=== PATIENT | male | born 1940 | race Caucasian/White ===

== ENCOUNTER 2020-05-16 09:53 | Inpatient (IN) ==
[2020-05-16] MEDS ORDERED: Isovue-370 500 ML BOTTLE IVP ONE (10:06)
[2020-05-16 10:22] LABS: Basophils % 0.1 %; Hematocrit 43.2 % (37.5-50.1); Hemoglobin 14.1 g/dL (12.9-16.9); Immature Granulocytes % 0.3 % (0-4); Lymphocytes # 0.3 K/mcL (0.6-4.6); Lymphocytes % 2.7 %; Mean Corpuscular HGB Conc 32.6 g/dL (31.6-35.5); Mean Corpuscular Hemoglobin 29.2 pg (28.0-33.3); Mean Corpuscular Volume 89.4 fL (83.0-100.0); Mean Platelet Volume 10.3 fL (9.4-12.4); Monocytes # 0.4 K/mcL (0.0-1.3); Monocytes % 3.9 %; Neutrophils # 8.8 K/mcL (1.6-8.9); Platelet Count 167 K/mcL (140-400); Red Blood Count 4.83 M/mcL (4.19-5.50); Red Cell Distribution Width 13.1 % (11.5-14.5); White Blood Count 9.4 K/mcL (4.3-11.1)
[2020-05-16 10:42] LABS: Alanine Aminotransferase 20 Units/L (7-52); Albumin/Globulin Ratio 1.2 (1.1-2.2); Alkaline Phosphatase 37 Units/L (34-104); Aspartate Amino Transferase 29 Units/L (13-39); BUN/Creatinine Ratio 22 (6-26); Bilirubin,Direct 0.4 mg/dL (0.0-0.2); Bilirubin,Indirect 0.9 mg/dL (0.0-1.0); Bilirubin,Total 1.3 mg/dL (0.3-1.0); Blood Urea Nitrogen 25 mg/dL (8-23); Calcium 9.2 mg/dL (8.6-10.3); Carbon Dioxide 23 mEq/L (23-29); Chloride 99 mEq/L (98-107); Globulin 3.4 g/dL (2.4-3.5); Glucose 149 mg/dL (70-105); Osmolality,Calculated 283 (280-300); Potassium 3.8 mEq/L (3.5-5.1); Sodium 133 mEq/L (136-145); Total Protein 7.4 g/dL (6.4-8.9); Troponin I < 0.03 ng/mL (< 0.04); eGFR For African Americans > 60 (> 60); eGFR For Non-African Americans > 60 (> 60)
[2020-05-16 11:47] LABS: Bacteria,Urine Few per hpf (None-Few); Bilirubin,Urine Negative (Negative); Blood,Urine Trace (Negative); Clarity,Urine Turbid (Clear); Color,Urine Yellow (Yellow); Glucose,Urine (UA) Normal (Normal); Hyaline Casts,Urine Few per lpf (None Seen); Ketones,Urine 40 mg/dL (Negative); Leukocyte Esterase,Urine Negative (Negative); Mucus,Urine Many per lpf (None-Few); Nitrite,Urine Negative (Negative); PH,Urine 5.5 pH Units (5.0-8.0); Protein,Urine 50 mg/dL (Neg-Trace); RBC,Urine 0-3 per hpf (0-3); Specific Gravity,Urine 1.029 (1.010-1.025); WBC,Urine 0-3 per hpf (0-3)
[2020-05-16] MEDS ORDERED: Naloxone 0.4 MG/ML INJ IVP PRN (14:09)
[2020-05-16] MEDS: Ipratropium 1 PUFF INHALER IH SCH ×2 (16:29→19:58)
[2020-05-16] MEDS ORDERED: *HR* Dextrose 50 % in Water (Vial) 50 ML VIAL IVP PRN (17:24)
[2020-05-16] MEDS ORDERED: Dextrose Gel 15 GM/37.5 ML TUBE PO PRN ×2 (17:24)
[2020-05-16] MEDS ORDERED: D5% in Water 1,000 ML IVC PRN (17:24)
[2020-05-16] MEDS: Insulin LISPRO 300 UNITS/3 ML VIAL SQ SCH ×2 (17:47→21:56)
[2020-05-16] MEDS: Azithromycin 500 MG in 0.9 % Sodium Chloride 250 ML IVPB SCH (17:47)
[2020-05-17] MEDS: Ipratropium 1 PUFF INHALER IH SCH ×7 (00:01→23:53)
[2020-05-17] MEDS: Insulin LISPRO 300 UNITS/3 ML VIAL SQ SCH ×4 (08:19→20:53)
[2020-05-17 08:35] LABS: Basophils % 0.1 %; Hematocrit 42.1 % (37.5-50.1); Hemoglobin 13.7 g/dL (12.9-16.9); Immature Granulocytes % 0.4 % (0-4); Lymphocytes # 0.4 K/mcL (0.6-4.6); Lymphocytes % 3.6 %; Mean Corpuscular HGB Conc 32.5 g/dL (31.6-35.5); Mean Corpuscular Hemoglobin 29.5 pg (28.0-33.3); Mean Corpuscular Volume 90.7 fL (83.0-100.0); Mean Platelet Volume 10.3 fL (9.4-12.4); Monocytes # 0.5 K/mcL (0.0-1.3); Monocytes % 5.6 %; Neutrophils # 8.7 K/mcL (1.6-8.9); Platelet Count 175 K/mcL (140-400); Red Blood Count 4.64 M/mcL (4.19-5.50); Red Cell Distribution Width 13.2 % (11.5-14.5); Segmented Neutrophils % 90.3 %; White Blood Count 9.7 K/mcL (4.3-11.1)
[2020-05-17 08:53] LABS: BUN/Creatinine Ratio 28 (6-26); Blood Urea Nitrogen 31 mg/dL (8-23); Calcium 9.1 mg/dL (8.6-10.3); Carbon Dioxide 26 mEq/L (23-29); Chloride 102 mEq/L (98-107); Glucose 129 mg/dL (70-105); Osmolality,Calculated 292 (280-300); Potassium 4.5 mEq/L (3.5-5.1); Sodium 137 mEq/L (136-145); eGFR For African Americans > 60 (> 60); eGFR For Non-African Americans > 60 (> 60)
[2020-05-17] MEDS ORDERED: predniSONE 20 MG TABLET PO SCH (09:00)
[2020-05-17] MEDS ORDERED: cefTRIAXone 1,000 MG in Water for inj. (sterile) 10 ML IVP SCH (09:00)
[2020-05-17] MEDS: *HR* Enoxaparin 40 MG/0.4 ML SYRINGE SQ SCH (10:56)
[2020-05-17 11:53] LABS: Enterococcus by PCR Not Detected (Not Detect); Staphylococcus aureus by PCR Not Detected (Not Detect); Staphylococcus by PCR Not Detected (Not Detect); Streptococcus agalactiae(B)PCR Not Detected (Not Detect); Streptococcus by PCR DETECTED (Not Detect); Streptococcus pneumoniae PCR Not Detected (Not Detect); Streptococcus pyogenes (A) PCR Not Detected (Not Detect); blaKPC Carbapenem-Resist Gene Not Detected (Not Detect); mecA Methicillin-Resist Gene Not Detected (Not Detect); vanA/B Vancomycin-Resist Genes Not Detected (Not Detect)
[2020-05-17 11:54] LABS: Acinetobacter baumannii by PCR Not Detected (Not Detect); Candida albicans by PCR Not Detected (Not Detect); Candida glabrata by PCR Not Detected (Not Detect); Candida krusei by PCR Not Detected (Not Detect); Candida parapsilosis by PCR Not Detected (Not Detect); Candida tropicalis by PCR Not Detected (Not Detect); Enterobacter cloacae Cmplx PCR Not Detected (Not Detect); Enterobacteriaceae by PCR Not Detected (Not Detect); Escherichia coli by PCR Not Detected (Not Detect); Klebsiella oxytoca by PCR Not Detected (Not Detect); Klebsiella pneumoniae by PCR Not Detected (Not Detect); Proteus by PCR Not Detected (Not Detect); Pseudomonas aeruginosa by PCR Not Detected (Not Detect); Serratia marcescens by PCR Not Detected (Not Detect)
[2020-05-17] MEDS: Budesonide/Formoterol 160/4.5 1 PUFF INH IH SCH ×2 (12:30→19:52)
[2020-05-17] MEDS ORDERED: CefTRIAXone 1,000 MG VIAL IVP ONE (13:21)
[2020-05-17] MEDS ORDERED: cefTRIAXone 1,000 MG in Water for inj. (sterile) 10 ML IVP ONE (13:27)
[2020-05-17] MEDS: Azithromycin 500 MG in 0.9 % Sodium Chloride 250 ML IVPB SCH (14:30)
[2020-05-17] MEDS: methylPREDNISolone 125 MG/2 ML VIAL IVP SCH (17:22)
[2020-05-17] MEDS: Sennosides/Docusate Sodium TABLET PO SCH (20:52)
[2020-05-18] MEDS: methylPREDNISolone 125 MG/2 ML VIAL IVP SCH ×4 (01:11→23:36)
[2020-05-18] MEDS: Ipratropium 1 PUFF INHALER IH SCH ×5 (03:42→20:26)
[2020-05-18 05:04] LABS: Basophils % 0.1 %; Hematocrit 40.1 % (37.5-50.1); Hemoglobin 12.9 g/dL (12.9-16.9); Immature Granulocytes % 0.4 % (0-4); Lymphocytes # 0.4 K/mcL (0.6-4.6); Lymphocytes % 4.7 %; Mean Corpuscular HGB Conc 32.2 g/dL (31.6-35.5); Mean Corpuscular Hemoglobin 28.9 pg (28.0-33.3); Mean Corpuscular Volume 89.7 fL (83.0-100.0); Mean Platelet Volume 10.5 fL (9.4-12.4); Monocytes # 0.2 K/mcL (0.0-1.3); Monocytes % 3.1 %; Neutrophils # 6.8 K/mcL (1.6-8.9); Platelet Count 189 K/mcL (140-400); Red Blood Count 4.47 M/mcL (4.19-5.50); Red Cell Distribution Width 13.2 % (11.5-14.5); Segmented Neutrophils % 91.7 %; White Blood Count 7.4 K/mcL (4.3-11.1)
[2020-05-18 05:20] LABS: BUN/Creatinine Ratio 34 (6-26); Blood Urea Nitrogen 35 mg/dL (8-23); Calcium 8.9 mg/dL (8.6-10.3); Carbon Dioxide 22 mEq/L (23-29); Chloride 103 mEq/L (98-107); Glucose 209 mg/dL (70-105); Osmolality,Calculated 294 (280-300); Potassium 4.5 mEq/L (3.5-5.1); Sodium 135 mEq/L (136-145); eGFR For African Americans > 60 (> 60); eGFR For Non-African Americans > 60 (> 60)
[2020-05-18] MEDS: *HR* Enoxaparin 40 MG/0.4 ML SYRINGE SQ SCH (06:31)
[2020-05-18] MEDS: Insulin LISPRO 300 UNITS/3 ML VIAL SQ SCH ×4 (07:59→20:49)
[2020-05-18] MEDS: Aspirin Enteric Coated 81 MG Tablet PO SCH (08:00)
[2020-05-18] MEDS: Sennosides/Docusate Sodium TABLET PO SCH ×2 (08:00→20:49)
[2020-05-18] MEDS: Cyanocobalamin (B-12) 1,000 MCG TABLET PO SCH (08:00)
[2020-05-18] MEDS: cefTRIAXone 2,000 MG in Water for inj. (sterile) 20 ML IVP SCH (08:01)
[2020-05-18] MEDS: Budesonide/Formoterol 160/4.5 1 PUFF INH IH SCH ×2 (08:05→20:26)
[2020-05-18] MEDS ORDERED: Furosemide 20 MG/2 ML VIAL IVP ONE (10:00)
[2020-05-18] MEDS: Fluticasone Propionate Nasal 50 MCG/SPRAY BOTTLE NS PRN (12:24)
[2020-05-18] MEDS: Insulin DETEMIR 100 UNIT/ML X5UNITS SQ SCH (13:39)
[2020-05-18] MEDS: Azithromycin 500 MG in 0.9 % Sodium Chloride 250 ML IVPB SCH (15:58)
[2020-05-18 22:31] LABS: Adenovirus Not Detected (Not Detect); Coronavirus 229E Not Detected (Not Detect); Coronavirus HKU1 Not Detected (Not Detect); Coronavirus NL63 Not Detected (Not Detect); Coronavirus OC43 Not Detected (Not Detect)
[2020-05-18 22:32] LABS: Bordetella Pertussis Not Detected (Not Detect); Chlamydophila pneumoniae Not Detected (Not Detect); Human Metapneumovirus Not Detected (Not Detect); Human Rhinovirus/Enterovirus Not Detected (Not Detect); Influenza A Subtype 2009 H1 Not Detected (Not Detect); Influenza B Not Detected (Not Detect); Mycoplasma pneumoniae Not Detected (Not Detect); Parainfluenza Virus 1 Not Detected (Not Detect); Parainfluenza Virus 2 Not Detected (Not Detect); Parainfluenza Virus 3 Not Detected (Not Detect); Parainfluenza Virus 4 Not Detected (Not Detect); Respiratory Syncytial Virus Not Detected (Not Detect); SARS-CoV-2 DETECTED (Not Detect)
[2020-05-19] MEDS: Ipratropium 1 PUFF INHALER IH SCH ×6 (00:27→20:30)
[2020-05-19] MEDS: *HR* Enoxaparin 40 MG/0.4 ML SYRINGE SQ SCH (05:45)
[2020-05-19 06:03] LABS: Basophils % 0.1 %; Hemoglobin 12.6 g/dL (12.9-16.9); Lymphocytes # 0.3 K/mcL (0.6-4.6); Lymphocytes % 3.3 %; Mean Corpuscular HGB Conc 32.3 g/dL (31.6-35.5); Mean Corpuscular Hemoglobin 29.2 pg (28.0-33.3); Mean Corpuscular Volume 90.5 fL (83.0-100.0); Mean Platelet Volume 10.5 fL (9.4-12.4); Monocytes # 0.4 K/mcL (0.0-1.3); Monocytes % 4.2 %; Neutrophils # 8.6 K/mcL (1.6-8.9); Platelet Count 197 K/mcL (140-400); Red Blood Count 4.31 M/mcL (4.19-5.50); Red Cell Distribution Width 13.4 % (11.5-14.5); Segmented Neutrophils % 91.4 %; White Blood Count 9.4 K/mcL (4.3-11.1)
[2020-05-19 06:12] LABS: BUN/Creatinine Ratio 39 (6-26); Blood Urea Nitrogen 45 mg/dL (8-23); Calcium 8.8 mg/dL (8.6-10.3); Carbon Dioxide 26 mEq/L (23-29); Chloride 104 mEq/L (98-107); Glucose 198 mg/dL (70-105); Osmolality,Calculated 303 (280-300); Potassium 4.3 mEq/L (3.5-5.1); Sodium 138 mEq/L (136-145); eGFR For African Americans > 60 (> 60); eGFR For Non-African Americans > 60 (> 60)
[2020-05-19] MEDS: cefTRIAXone 2,000 MG in Water for inj. (sterile) 20 ML IVP SCH (07:28)
[2020-05-19] MEDS: Aspirin Enteric Coated 81 MG Tablet PO SCH (07:29)
[2020-05-19] MEDS: methylPREDNISolone 125 MG/2 ML VIAL IVP SCH ×3 (07:29→23:31)
[2020-05-19] MEDS: Sennosides/Docusate Sodium TABLET PO SCH ×3 (07:30→19:58)
[2020-05-19] MEDS: Cyanocobalamin (B-12) 1,000 MCG TABLET PO SCH (07:30)
[2020-05-19] MEDS: Insulin DETEMIR 100 UNIT/ML X5UNITS SQ SCH (07:34)
[2020-05-19] MEDS: Insulin LISPRO 300 UNITS/3 ML VIAL SQ SCH ×4 (07:35→21:16)
[2020-05-19] MEDS: Budesonide/Formoterol 160/4.5 1 PUFF INH IH SCH ×2 (07:43→20:30)
[2020-05-19 07:49] LABS: Estimated Average Glucose 151 mg/dl
[2020-05-19] MEDS: *HR* LORazepam 2 MG/ML VIAL IVP PRN (11:31)
[2020-05-19] MEDS: Azithromycin 500 MG in 0.9 % Sodium Chloride 250 ML IVPB SCH (15:50)
[2020-05-20] MEDS: Ipratropium 1 PUFF INHALER IH SCH ×7 (00:01→23:52)
[2020-05-20 05:20] LABS: Basophils % 0.3 %; Hematocrit 37.9 % (37.5-50.1); Hemoglobin 12.6 g/dL (12.9-16.9); Immature Granulocytes % 1.2 % (0-4); Lymphocytes # 0.3 K/mcL (0.6-4.6); Lymphocytes % 2.8 %; Mean Corpuscular HGB Conc 33.2 g/dL (31.6-35.5); Mean Corpuscular Hemoglobin 30.3 pg (28.0-33.3); Mean Corpuscular Volume 91.1 fL (83.0-100.0); Mean Platelet Volume 10.3 fL (9.4-12.4); Monocytes # 0.5 K/mcL (0.0-1.3); Monocytes % 4.9 %; Neutrophils # 9.3 K/mcL (1.6-8.9); Platelet Count 187 K/mcL (140-400); Red Blood Count 4.16 M/mcL (4.19-5.50); Red Cell Distribution Width 13.3 % (11.5-14.5); Segmented Neutrophils % 90.8 %; White Blood Count 10.2 K/mcL (4.3-11.1)
[2020-05-20 05:39] LABS: BUN/Creatinine Ratio 43 (6-26); Blood Urea Nitrogen 42 mg/dL (8-23); Calcium 8.7 mg/dL (8.6-10.3); Carbon Dioxide 27 mEq/L (23-29); Chloride 105 mEq/L (98-107); Glucose 163 mg/dL (70-105); Osmolality,Calculated 304 (280-300); Potassium 4.5 mEq/L (3.5-5.1); Sodium 140 mEq/L (136-145); eGFR For African Americans > 60 (> 60); eGFR For Non-African Americans > 60 (> 60)
[2020-05-20] MEDS: *HR* Enoxaparin 40 MG/0.4 ML SYRINGE SQ SCH (05:44)
[2020-05-20] MEDS: Fluticasone Propionate Nasal 50 MCG/SPRAY BOTTLE NS PRN (06:11)
[2020-05-20] MEDS: Budesonide/Formoterol 160/4.5 1 PUFF INH IH SCH ×2 (07:50→19:53)
[2020-05-20] MEDS: Cyanocobalamin (B-12) 1,000 MCG TABLET PO SCH (08:12)
[2020-05-20] MEDS: cefTRIAXone 2,000 MG in Water for inj. (sterile) 20 ML IVP SCH (08:12)
[2020-05-20] MEDS: methylPREDNISolone 125 MG/2 ML VIAL IVP SCH (08:12)
[2020-05-20] MEDS: Sennosides/Docusate Sodium TABLET PO SCH ×2 (08:12→20:47)
[2020-05-20] MEDS: Aspirin Enteric Coated 81 MG Tablet PO SCH (08:12)
[2020-05-20] MEDS: Insulin LISPRO 300 UNITS/3 ML VIAL SQ SCH ×4 (08:13→20:47)
[2020-05-20] MEDS: Insulin DETEMIR 100 UNIT/ML X5UNITS SQ SCH (08:14)
[2020-05-20] MEDS: Furosemide 40 MG/4 ML VIAL IVP SCH (10:54)
[2020-05-20] MEDS: Spironolactone 25 MG TABLET PO SCH (10:55)
[2020-05-20] MEDS: Dexamethasone 4 MG/ML VIAL IVP SCH (16:07)
[2020-05-20] MEDS: Azithromycin 500 MG in 0.9 % Sodium Chloride 250 ML IVPB SCH (16:07)
[2020-05-20] MEDS ORDERED: methylPREDNISolone 125 MG/2 ML VIAL IVP SCH (18:00)
[2020-05-21] MEDS: Ipratropium 1 PUFF INHALER IH SCH ×5 (04:12→19:58)
[2020-05-21] MEDS: *HR* Enoxaparin 40 MG/0.4 ML SYRINGE SQ SCH (05:08)
[2020-05-21 06:26] LABS: Basophils % 0.4 %; Hematocrit 39.9 % (37.5-50.1); Hemoglobin 13.1 g/dL (12.9-16.9); Immature Granulocytes % 1.8 % (0-4); Lymphocytes # 0.4 K/mcL (0.6-4.6); Lymphocytes % 4.2 %; Mean Corpuscular HGB Conc 32.8 g/dL (31.6-35.5); Mean Corpuscular Volume 91.3 fL (83.0-100.0); Mean Platelet Volume 10.3 fL (9.4-12.4); Monocytes # 0.6 K/mcL (0.0-1.3); Monocytes % 6.2 %; Neutrophils # 8.3 K/mcL (1.6-8.9); Platelet Count 198 K/mcL (140-400); Red Blood Count 4.37 M/mcL (4.19-5.50); Red Cell Distribution Width 13.3 % (11.5-14.5); Segmented Neutrophils % 87.4 %; White Blood Count 9.5 K/mcL (4.3-11.1)
[2020-05-21 06:44] LABS: Platelet Estimate Normal (Normal)
[2020-05-21 06:45] LABS: BUN/Creatinine Ratio 41 (6-26); Blood Urea Nitrogen 43 mg/dL (8-23); Calcium 8.7 mg/dL (8.6-10.3); Carbon Dioxide 30 mEq/L (23-29); Chloride 102 mEq/L (98-107); Glucose 149 mg/dL (70-105); Magnesium 2.7 mg/dL (1.6-2.6); Osmolality,Calculated 302 (280-300); Sodium 139 mEq/L (136-145); eGFR For African Americans > 60 (> 60); eGFR For Non-African Americans > 60 (> 60)
[2020-05-21] MEDS: Budesonide/Formoterol 160/4.5 1 PUFF INH IH SCH ×2 (07:39→19:58)
[2020-05-21] MEDS: cefTRIAXone 2,000 MG in Water for inj. (sterile) 20 ML IVP SCH (10:21)
[2020-05-21] MEDS: Furosemide 40 MG/4 ML VIAL IVP SCH (10:22)
[2020-05-21] MEDS: Dexamethasone 4 MG/ML VIAL IVP SCH (10:22)
[2020-05-21] MEDS: Sennosides/Docusate Sodium TABLET PO SCH ×2 (10:23→20:41)
[2020-05-21] MEDS: Aspirin Enteric Coated 81 MG Tablet PO SCH (10:24)
[2020-05-21] MEDS: Cyanocobalamin (B-12) 1,000 MCG TABLET PO SCH (10:24)
[2020-05-21] MEDS: Spironolactone 25 MG TABLET PO SCH (10:24)
[2020-05-21] MEDS: Insulin LISPRO 300 UNITS/3 ML VIAL SQ SCH ×4 (10:26→20:45)
[2020-05-21] MEDS: Insulin DETEMIR 100 UNIT/ML X5UNITS SQ SCH (12:51)
[2020-05-21] MEDS ORDERED: Azithromycin 500 MG VIAL ONE (16:10)
[2020-05-21] MEDS: Azithromycin 500 MG in 0.9 % Sodium Chloride 250 ML IVPB SCH (16:16)
[2020-05-22] MEDS: Ipratropium 1 PUFF INHALER IH SCH ×7 (00:04→23:41)
[2020-05-22] MEDS: *HR* Enoxaparin 40 MG/0.4 ML SYRINGE SQ SCH (05:24)
[2020-05-22 07:13] LABS: Basophils # 0.1 K/mcL (0.0-0.2); Basophils % 0.6 %; Hematocrit 43.6 % (37.5-50.1); Immature Granulocytes % 2.6 % (0-4); Lymphocytes # 0.5 K/mcL (0.6-4.6); Lymphocytes % 5.3 %; Mean Corpuscular HGB Conc 32.1 g/dL (31.6-35.5); Mean Corpuscular Hemoglobin 29.2 pg (28.0-33.3); Mean Corpuscular Volume 90.8 fL (83.0-100.0); Mean Platelet Volume 10.3 fL (9.4-12.4); Monocytes # 0.5 K/mcL (0.0-1.3); Monocytes % 4.8 %; Neutrophils # 8.3 K/mcL (1.6-8.9); Platelet Count 205 K/mcL (140-400); Red Cell Distribution Width 13.4 % (11.5-14.5); Segmented Neutrophils % 86.7 %; White Blood Count 9.6 K/mcL (4.3-11.1)
[2020-05-22 07:35] LABS: BUN/Creatinine Ratio 41 (6-26); Blood Urea Nitrogen 43 mg/dL (8-23); Calcium 8.6 mg/dL (8.6-10.3); Carbon Dioxide 31 mEq/L (23-29); Chloride 103 mEq/L (98-107); Glucose 104 mg/dL (70-105); Magnesium 2.6 mg/dL (1.6-2.6); Osmolality,Calculated 305 (280-300); Potassium 4.2 mEq/L (3.5-5.1); Sodium 142 mEq/L (136-145); eGFR For African Americans > 60 (> 60); eGFR For Non-African Americans > 60 (> 60)
[2020-05-22] MEDS: Budesonide/Formoterol 160/4.5 1 PUFF INH IH SCH ×2 (07:55→20:05)
[2020-05-22] MEDS: Insulin LISPRO 300 UNITS/3 ML VIAL SQ SCH ×4 (08:28→20:46)
[2020-05-22 09:34] LABS: D-Dimer 11513 ng/mLFEU (0-500)
[2020-05-22 09:35] LABS: Fibrinogen 448 mg/dL (169-393)
[2020-05-22] MEDS: cefTRIAXone 2,000 MG in 0.9 % Sodium Chloride Mini Bag 100 ML IVPB SCH (10:31)
[2020-05-22] MEDS: Spironolactone 25 MG TABLET PO SCH (10:31)
[2020-05-22] MEDS: Aspirin Enteric Coated 81 MG Tablet PO SCH (10:31)
[2020-05-22] MEDS: Sennosides/Docusate Sodium TABLET PO SCH ×2 (10:31→21:11)
[2020-05-22] MEDS: Cyanocobalamin (B-12) 1,000 MCG TABLET PO SCH (10:32)
[2020-05-22] MEDS: Furosemide 40 MG/4 ML VIAL IVP SCH ×2 (10:32→21:11)
[2020-05-22] MEDS: Dexamethasone 4 MG/ML VIAL IVP SCH (10:32)
[2020-05-22] MEDS: Insulin DETEMIR 100 UNIT/ML X5UNITS SQ SCH (10:33)
[2020-05-22] MEDS ORDERED: *HR* Heparin 5,000 UNIT/ML VIAL IVP PRN ×2 (14:30)
[2020-05-22] MEDS ORDERED: *HR* Heparin 5,000 UNIT/ML VIAL IVP ONE (14:30)
[2020-05-22 15:59] LABS: Heparin anti-factor XA UFH 0.1 IU/mL (0.30-0.70)
[2020-05-22 16:00] LABS: INR 1.3; Prothrombin Time 15.4 Seconds (9.4-12.1)
[2020-05-22 16:02] LABS: Hematocrit 44.5 % (37.5-50.1); Hemoglobin 14.6 g/dL (12.9-16.9); Mean Corpuscular HGB Conc 32.8 g/dL (31.6-35.5); Mean Corpuscular Hemoglobin 29.9 pg (28.0-33.3); Mean Corpuscular Volume 91.2 fL (83.0-100.0); Mean Platelet Volume 10.1 fL (9.4-12.4); Platelet Count 216 K/mcL (140-400); Red Blood Count 4.88 M/mcL (4.19-5.50); Red Cell Distribution Width 13.2 % (11.5-14.5); White Blood Count 10.8 K/mcL (4.3-11.1)
[2020-05-22] MEDS: Heparin 25,000UNIT/250ML 1/2NS 25,000 UNIT/250 ML IV.SOLN IVC SCH (16:13)
[2020-05-22] MEDS: GuaiFENesin Liq 200 MG/10 ML UDC PO PRN (21:11)
[2020-05-22] MEDS: *HR* LORazepam 2 MG/ML VIAL IVP PRN (21:11)
[2020-05-23 00:38] LABS: Basophils % 0.5 %; Hematocrit 45.7 % (37.5-50.1); Hemoglobin 14.9 g/dL (12.9-16.9); Immature Granulocytes % 1.9 % (0-4); Lymphocytes # 0.4 K/mcL (0.6-4.6); Lymphocytes % 4.4 %; Mean Corpuscular HGB Conc 32.6 g/dL (31.6-35.5); Mean Platelet Volume 10.4 fL (9.4-12.4); Monocytes # 0.3 K/mcL (0.0-1.3); Monocytes % 2.8 %; Platelet Count 208 K/mcL (140-400); Red Blood Count 4.97 M/mcL (4.19-5.50); Red Cell Distribution Width 13.3 % (11.5-14.5); Segmented Neutrophils % 90.4 %; White Blood Count 8.8 K/mcL (4.3-11.1)
[2020-05-23 00:47] LABS: BUN/Creatinine Ratio 38 (6-26); Blood Urea Nitrogen 47 mg/dL (8-23); Calcium 8.7 mg/dL (8.6-10.3); Carbon Dioxide 32 mEq/L (23-29); Chloride 98 mEq/L (98-107); Glucose 148 mg/dL (70-105); Magnesium 2.8 mg/dL (1.6-2.6); Osmolality,Calculated 309 (280-300); Potassium 4.6 mEq/L (3.5-5.1); Sodium 142 mEq/L (136-145); eGFR For African Americans > 60 (> 60); eGFR For Non-African Americans 56 (> 60)
[2020-05-23] MEDS: Morphine Sulfate 2 MG/ML SYRINGE IVP PRN (03:02)
[2020-05-23] MEDS: Ipratropium 1 PUFF INHALER IH SCH ×6 (03:31→23:28)
[2020-05-23] MEDS: Budesonide/Formoterol 160/4.5 1 PUFF INH IH SCH ×2 (07:43→19:58)
[2020-05-23] MEDS: Insulin LISPRO 300 UNITS/3 ML VIAL SQ SCH ×4 (08:29→20:38)
[2020-05-23] MEDS: Spironolactone 25 MG TABLET PO SCH (08:37)
[2020-05-23] MEDS: Dexamethasone 4 MG/ML VIAL IVP SCH (08:37)
[2020-05-23] MEDS: Furosemide 40 MG/4 ML VIAL IVP SCH ×2 (08:37→20:04)
[2020-05-23] MEDS: Cyanocobalamin (B-12) 1,000 MCG TABLET PO SCH (08:37)
[2020-05-23] MEDS: Aspirin Enteric Coated 81 MG Tablet PO SCH (08:37)
[2020-05-23] MEDS: Sennosides/Docusate Sodium TABLET PO SCH ×2 (08:37→20:03)
[2020-05-23] MEDS: cefTRIAXone 2,000 MG in 0.9 % Sodium Chloride Mini Bag 100 ML IVPB SCH (08:39)
[2020-05-23] MEDS: Insulin DETEMIR 100 UNIT/ML X5UNITS SQ SCH (11:19)
[2020-05-23] MEDS: Azithromycin 250 MG TABLET PO SCH (14:22)
[2020-05-23] MEDS: Heparin 25,000UNIT/250ML 1/2NS 25,000 UNIT/250 ML IV.SOLN IVC SCH (20:02)
[2020-05-23] MEDS: GuaiFENesin Liq 200 MG/10 ML UDC PO PRN (20:03)
[2020-05-23] MEDS: *HR* LORazepam 2 MG/ML VIAL IVP PRN (20:04)
[2020-05-24] MEDS: Morphine Sulfate 2 MG/ML SYRINGE IVP PRN ×3 (01:13→18:46)
[2020-05-24 02:56] LABS: Basophils % 0.2 %; Eosinophils % 0.1 %; Hematocrit 44.8 % (37.5-50.1); Hemoglobin 14.6 g/dL (12.9-16.9); Immature Granulocytes % 0.9 % (0-4); Lymphocytes # 0.4 K/mcL (0.6-4.6); Lymphocytes % 3.2 %; Mean Corpuscular HGB Conc 32.6 g/dL (31.6-35.5); Mean Platelet Volume 10.5 fL (9.4-12.4); Monocytes # 0.3 K/mcL (0.0-1.3); Monocytes % 2.3 %; Neutrophils # 10.3 K/mcL (1.6-8.9); Platelet Count 199 K/mcL (140-400); Red Blood Count 4.87 M/mcL (4.19-5.50); Red Cell Distribution Width 13.2 % (11.5-14.5); Segmented Neutrophils % 93.3 %; White Blood Count 11.1 K/mcL (4.3-11.1)
[2020-05-24 03:10] LABS: BUN/Creatinine Ratio 45 (6-26); Blood Urea Nitrogen 59 mg/dL (8-23); Carbon Dioxide 31 mEq/L (23-29); Chloride 99 mEq/L (98-107); Glucose 166 mg/dL (70-105); Potassium 4.1 mEq/L (3.5-5.1); Sodium 140 mEq/L (136-145); eGFR For African Americans > 60 (> 60); eGFR For Non-African Americans 52 (> 60)
[2020-05-24 03:11] LABS: Calcium 8.4 mg/dL (8.6-10.3); Magnesium 2.7 mg/dL (1.6-2.6); Osmolality,Calculated 310 (280-300)
[2020-05-24] MEDS: Ipratropium 1 PUFF INHALER IH SCH ×5 (03:58→20:19)
[2020-05-24] MEDS: Budesonide/Formoterol 160/4.5 1 PUFF INH IH SCH ×2 (07:51→20:19)
[2020-05-24] MEDS: Sennosides/Docusate Sodium TABLET PO SCH ×2 (08:02→20:05)
[2020-05-24] MEDS: Cyanocobalamin (B-12) 1,000 MCG TABLET PO SCH (08:02)
[2020-05-24] MEDS: cefTRIAXone 2,000 MG in 0.9 % Sodium Chloride Mini Bag 100 ML IVPB SCH (08:02)
[2020-05-24] MEDS: Aspirin Enteric Coated 81 MG Tablet PO SCH (08:02)
[2020-05-24] MEDS: Azithromycin 250 MG TABLET PO SCH (08:02)
[2020-05-24] MEDS: Dexamethasone 4 MG/ML VIAL IVP SCH (08:02)
[2020-05-24] MEDS: Insulin DETEMIR 100 UNIT/ML X5UNITS SQ SCH (08:04)
[2020-05-24] MEDS: Insulin LISPRO 300 UNITS/3 ML VIAL SQ SCH ×4 (08:05→20:05)
[2020-05-24] MEDS: Metoprolol XL (24 HR) Succ 50 MG TAB.ER.24H PO SCH (10:04)
[2020-05-24] MEDS: *HR* LORazepam 2 MG/ML VIAL IVP PRN (20:04)
[2020-05-25] MEDS: Ipratropium 1 PUFF INHALER IH SCH ×4 (00:12→11:26)
[2020-05-25] MEDS: Heparin 25,000UNIT/250ML 1/2NS 25,000 UNIT/250 ML IV.SOLN IVC SCH (01:00)
[2020-05-25] MEDS: Morphine Sulfate 2 MG/ML SYRINGE IVP PRN ×6 (01:17→12:48)
[2020-05-25] MEDS ORDERED: *HR* Metoprolol 5 MG/5 ML VIAL IVP ONE ×2 (05:15→06:40)
[2020-05-25 06:25] LABS: Basophils # 0.1 K/mcL (0.0-0.2); Basophils % 0.4 %; Eosinophils % 0.1 %; Hematocrit 49.9 % (37.5-50.1); Lymphocytes # 0.6 K/mcL (0.6-4.6); Lymphocytes % 4.4 %; Mean Corpuscular HGB Conc 32.1 g/dL (31.6-35.5); Mean Corpuscular Hemoglobin 29.8 pg (28.0-33.3); Mean Corpuscular Volume 92.9 fL (83.0-100.0); Mean Platelet Volume 11.1 fL (9.4-12.4); Monocytes # 0.4 K/mcL (0.0-1.3); Monocytes % 2.8 %; Platelet Count 223 K/mcL (140-400); Red Blood Count 5.37 M/mcL (4.19-5.50); Red Cell Distribution Width 13.2 % (11.5-14.5); Segmented Neutrophils % 91.3 %; White Blood Count 14.2 K/mcL (4.3-11.1)
[2020-05-25 07:06] LABS: BUN/Creatinine Ratio 43 (6-26); Blood Urea Nitrogen 52 mg/dL (8-23); Calcium 9.1 mg/dL (8.6-10.3); Carbon Dioxide 28 mEq/L (23-29); Chloride 98 mEq/L (98-107); Glucose 93 mg/dL (70-105); Magnesium 2.8 mg/dL (1.6-2.6); Osmolality,Calculated 304 (280-300); Potassium 4.3 mEq/L (3.5-5.1); Sodium 140 mEq/L (136-145); eGFR For African Americans > 60 (> 60); eGFR For Non-African Americans 59 (> 60)
[2020-05-25] MEDS: Budesonide/Formoterol 160/4.5 1 PUFF INH IH SCH (07:37)
[2020-05-25 07:56] VITALS: BP 131/90
[2020-05-25] MEDS: Insulin LISPRO 300 UNITS/3 ML VIAL SQ SCH ×2 (08:45→11:52)
[2020-05-25] MEDS: Insulin DETEMIR 100 UNIT/ML X5UNITS SQ SCH ×2 (08:46→08:54)
[2020-05-25] MEDS: Dexamethasone 4 MG/ML VIAL IVP SCH (08:50)
[2020-05-25] MEDS: Metoprolol XL (24 HR) Succ 50 MG TAB.ER.24H PO SCH (08:51)
[2020-05-25] MEDS: Azithromycin 250 MG TABLET PO SCH (08:51)
[2020-05-25] MEDS: Aspirin Enteric Coated 81 MG Tablet PO SCH (08:51)
[2020-05-25] MEDS: cefTRIAXone 2,000 MG in 0.9 % Sodium Chloride Mini Bag 100 ML IVPB SCH (08:51)
[2020-05-25] MEDS: Cyanocobalamin (B-12) 1,000 MCG TABLET PO SCH (08:51)
[2020-05-25] MEDS: Sennosides/Docusate Sodium TABLET PO SCH (08:51)
[2020-05-25] MEDS ORDERED: Glycopyrrolate 0.2 MG/ML VIAL IVP PRN (10:39)
[2020-05-25] MEDS: *HR* LORazepam 2 MG/ML VIAL IVP PRN ×3 (10:39→12:30)
[2020-05-25] MEDS ORDERED: *HR* LORazepam 2 MG/ML VIAL IVP PRN (12:39)
== END 2020-05-25 14:04 | disposition expired | DRG 177 ==
LOC: 2NENU 09:53 → EMEROOARM 09:53 → 2NENU 14:06 → SUATTDRO 05-17 15:37
PROVIDERS: ADMIT Internal Medicine; ATTEND Pharmacist